=== PATIENT | female | born 1945 | race Caucasian/White ===

== ENCOUNTER 2016-08-18 06:47 | Inpatient (IN) | payer OTHER, MEDICARE ==
[2016-07-16 14:46] VITALS: BMI 32.0
--- NOTE | 2016-07-16 15:26 | PAT Medication Instructions ---
Service Date July 16, 2016. Current Home Medication List Aspirin (Aspirin Ec), 81 MG PO QAM Atorvastatin (Lipitor), 20 MG PO QPM Betamethasone Dipropionate Aug (Diprolene Af), 1 APPLN TOP BID PRN for RASH Cholecalciferol (Vitamin D), 1,000 INTER.UNIT PO QPM Gabapentin (Neurontin), 200 MG PO QAM/PM Gabapentin (Neurontin), 300 MG PO HS Hydrochlorothiazide (Hydrochlorothiazide), 1 TAB PO QAM Hydrocodone/Acetaminophen 5MG/325MG ([place] 5MG/325MG), 1 TABLET PO Q4 PRN for Pain Lisinopril (Prinivil), 20 MG PO QAM Misc Natural Products (Osteo Bi-Flex Joint Shiel), 1 TAB PO QPM Ropinirole (Requip), 0.5 MG PO HS Medication Instructions For Your Scheduled Surgery - Hold the following medications 7 days prior to surgery: Misc Natural Products (Osteo Bi-Flex Joint Shiel), 1 TAB PO QPM - Hold the following medications 24 hours prior to surgery: Betamethasone Dipropionate Aug (Diprolene Af), 1 APPLN TOP BID PRN for RASH - Hold the following medications evening prior to surgery: Ropinirole (Requip), 0.5 MG PO HS - Hold the following medications the morning of surgery: Lisinopril (Prinivil), 20 MG PO QAM Hydrochlorothiazide (Hydrochlorothiazide), 1 TAB PO QAM - Take the following medications the morning of surgery with a sip of water: Gabapentin (Neurontin), 200 MG PO (if needed) Hydrocodone/Acetaminophen 5MG/325MG ([place] 5MG/325MG), 1 TABLET PO Q4 PRN for Pain (can take up to four hours prior to surgery if needed) Aspirin (Aspirin Ec), 81 MG PO QAM - Take the following medications as scheduled the night before surgery: Gabapentin (Neurontin), 300 MG PO Hydrocodone/Acetaminophen 5MG/325MG ([place] 5MG/325MG), 1 TABLET PO Q4 PRN for Pain Cholecalciferol (Vitamin D), 1,000 INTER.UNIT PO QPM Atorvastatin (Lipitor), 20 MG PO QPM If you have any questions please call us at [phone] or [phone] ( [place]) or [phone]
[2016-07-16 16:01] LABS: URINE APPEARANCE CLEAR (CLEAR); URINE BILIRUBIN NEG (NEG); URINE COLOR YELLOW; URINE NITRITE NEG (NEG); URINE SPECIFIC GRAVITY 1.011 (1.000-1.030); UROBILINOGEN NEG (NEG); ZZUR CULT IF INDIC CLEAN CATCH NO
[2016-07-16 16:01] LABS: BASO % 0.3 %; BASO ABS # 0.02 K/uL (0-0.2); COMPLETE YES; EOS % 7.4 %; HEMATOCRIT 41.8 % (37-47); IG% 0.3 %; LYMPH % 27.2 %; LYMPH ABS # 2.13 K/uL (1.2-3.4); MEAN CELL VOLUME 91.5 fL (80-100); MEAN CORPUSCULAR HEMOGLOBIN 29.5 pg (25-34); MEAN CORPUSCULAR HGB CONC 32.3 g/dl (32-36); MEAN PLATELET VOLUME 10.8 fL (7.4-10.4); MONO % 5.8 %; PLATELET COUNT 228 K/uL (130-400); RED BLOOD COUNT 4.57 M/uL (4.2-5.4); WHITE BLOOD COUNT 7.82 K/uL (4.8-10.8)
[2016-07-16 16:14] LABS: MANUAL MICROSCOPIC REQUIRED? NO; REVIEW REQ? NO
[2016-07-16 16:26] LABS: PARTIAL THROMBOPLASTIN RATIO 1.2
--- NOTE | 2016-07-16 16:37 | DIAGNOSTIC IMAGING REPORT ---
CHEST 2 VIEWS ROUTINE CLINICAL HISTORY: Preoperative evaluation. COMPARISON STUDY: No previous studies for comparison. FINDINGS: Lung volumes are normal. There is no pneumothorax or pleural effusion. Bibasilar opacities favor atelectasis or scarring. There is no evidence of pulmonary edema. Cardiomediastinal silhouette is normal. IMPRESSION: No acute cardiopulmonary findings. Electronically signed by: Saul Omer M.D. 07/16/2016 4:36 PM Dictated Date/Time: 07/16/2016 4:36 PM
[2016-07-16 18:29] LABS: BUN/CREATININE RATIO 22.1 (10-20); CALCIUM 9.5 mg/dl (8.5-10.1); CREATININE 1.1 mg/dl (0.60-1.20); POTASSIUM 4.2 mmol/L (3.5-5.1)
[2016-07-17 07:32] LABS: ESTIMATED AVERAGE GLUCOSE 128 mg/dl; HA1C FLAG Normal (Normal)
--- NOTE | 2016-08-17 20:34 | HISTORY & PHYSICAL EXAMINATION ---
DATE OF ADMISSION: 08/18/2016 CHIEF COMPLAINT: Chronic right knee pain. HISTORY OF PRESENT ILLNESS: A 70-year-old female patient of Dr. Kong who is complaining of chronic right knee pain, longstanding, now progressively getting worse. The patient has been diagnosed with end-stage osteoarthritis per clinical and radiographic exams. She has failed conservative treatment including, acetaminophen, anti-inflammatories, intra-articular steroid injections and the use of cane and a wrap. She has increased pain with weightbearing activities and her pain does interfere with her activities of daily living. PAST MEDICAL HISTORY: Hypertension, hypercholesterolemia, carpal tunnel syndrome, osteoarthritis, spine problems, obesity, history of uterine cancer. SOCIAL HISTORY: Nonsmoker, nondrinker. FAMILY HISTORY: Noncontributory. REVIEW OF SYSTEMS: The patient complains of chronic right knee pain, otherwise denies any shortness of breath, chest pain, nausea, vomiting or any other joint complaints. PAST SURGICAL HISTORY: Tonsillectomy, , breast lumpectomy, hysterectomy, oophorectomy and knee arthroscopy. MEDICATIONS: Hydrocodone as needed, atorvastatin 20 mg daily, hydrochlorothiazide 12.5 mg daily, lisinopril 20 mg daily, betamethasone dipropionate 0.05% to affected area daily, aspirin 81 mg daily, vitamin D3 1000 unit daily, Neurontin 100 mg two tablets in the morning and three tablets in the evening, Osteo Bi-Flex daily, Requip 0.25 mg two tablets at bedtime. ALLERGIES: INCLUDE PENICILLIN. PHYSICAL EXAMINATION: GENERAL: Well-developed, well-nourished 70-year-old female in no acute distress. She is alert and oriented x3 and pleasant. HEENT: Normocephalic, atraumatic. Extraocular motions are intact. Pupils are equal and reactive to light. HEART: Regular rate and rhythm, and no murmurs appreciated. LUNGS: Clear. ABDOMEN: Soft, nontender, bowel sounds present. EXTREMITIES: Right knee reveals a valgus deformity with lateral joint line tenderness. She has a limited range of motion of 0-130 degrees. She has crepitation with passive range of motion with a mild effusion. She has 5/5 strength. NEUROLOGIC: Neurovascularly, she is intact in her right lower extremity. DIAGNOSES: Right knee end-stage osteoarthritis, hypertension, hypercholesterolemia, carpal tunnel syndrome, osteoarthritis, spine problems, obesity and history of uterine cancer. PLAN: The patient was advised of her diagnosis. Indications, risks, benefits, and postop course have all been reviewed. The patient wishes to proceed with a right total knee arthroplasty. Necessary consent forms, preoperative testing and clearances will be obtained.
[2016-08-18] VITALS (12 sets, daily range): BP systolic 138–188; BP diastolic 71–83; PULSE 55–81; TEMP 36.4–36.6; O2SAT 96–99; Ht 162.6 cm; Wt 85.0 kg
[~2016-08-18] VITALS: Ht 162.6 cm; Wt 85.0 kg
[2016-08-18] MEDS: TRANEXAMIC ACID INJ 1,000 MG in SODIUM CHLORIDE 0.9% 100ML 100 ML IV SCH ×2 (06:30→08:40)
[~2016-08-18 06:47] MED LIST: ACETAMINOPHEN 500 MG TAB PO SCH; ASPI81TA28 PO; ATOR-22 PO; AUG0.05C12 TOP; BUPIVACAINE 0.5 % 5 MG/1 ML PF 10ML VIAL ONE; CHOL100010 PO; CeleBREX 200 MG CAP PO SCH; DEXAMETHASONE 4 MG TAB PO SCH; FAMOTIDINE 20 MG TAB PO SCH; GABA-112 PO; GABA-113 PO; GABAPENTIN 300 MG CAP PO SCH; HYDR-5688 PO; HYDR12.55 PO; LACTATED RINGER'S 1000ML 1,000 ML IV SCH; LACTATED RINGER'S 1000ML IV SCH; LISI20TA3 PO; METOCLOPRAMIDE HCL 10 MG TAB PO SCH; MIDAZOLAM HCL 1 MG/ML 2ML VIAL ONE; MISCTAB30 PO; ROPI0.5T15 PO; ROPIVACAINE 0.5% 5 MG/ML 30 ML VIAL ONE; ROPIVACAINE 5MG/ML 30 ML 150 MG, BUPIVACAINE/EPINEPHR 0.5% MPF 30 ML, KETOROLAC TROMETH... INFIL SCH; VANCOMYCIN INJ 1,300 MG in SODIUM CHLORIDE 0.9% 250ML 250 ML IV SCH
[2016-08-18] MEDS ORDERED: ORTHO JOINT ANESTHETIC ONE (07:01)
[2016-08-18] MEDS ORDERED: POVIDONE-IODINE OP SOLN 30 ML BTL ONE (07:01)
[2016-08-18] MEDS ORDERED: BACITRACIN 50000 UNIT VIAL ONE (07:01)
--- NOTE | 2016-08-18 07:03 | History & Physical Bridge Note ---
H&P Re-Evaluation Bridge Note: I have examined the patient, reviewed the History & Physical and in the interval since the performance of the History & Physical I have noted the following changes of clinical significance: No changes noted
[2016-08-18] MEDS ORDERED: PROPOFOL IV EMULSION 10 MG/ML 20 ML VIAL IV ONE (09:59)
[2016-08-18] MEDS ORDERED: LIDOCAINE HCL 2% 2 ML VIAL (20MG/ML) ONE (09:59)
[2016-08-18] MEDS ORDERED: ONDANSETRON INJ 2 MG/ML 2 ML VIAL IV PRN ×2 (10:00→11:30)
[2016-08-18] MEDS ORDERED: PHENYLEPHRINE 100MCG/ML 5ML SYR IV PRN (10:00)
[2016-08-18] MEDS ORDERED: ATROPINE SULFATE 0.1 MG/ML 5ML SYR IV PRN (10:00)
[2016-08-18] MEDS ORDERED: EpHEDrine SULFATE INJ 50 MG/ML AMP IV PRN (10:00)
[2016-08-18] MEDS ORDERED: HYDROmorphone INJ 2 MG/ML SYR/VIAL IV PRN (10:00)
--- NOTE | 2016-08-18 11:03 | [facility] Operative Report ---
Operative Report Operative Date Aug 18, 2016. Pre-Operative Diagnosis Right Knee End-Stage Osteoarthritis,avn lateral femoral condyle failed arthroscopy and injection bone substitute for insufficiency fracture Post-Operative Diagnosis same Procedure(s) Performed right total knee replacement Surgeon Dr. Hawk Praj[address]ati [address] Sign Installer Surgeon(s) Marcelo Grijalva PA-c Estimated Blood Loss 5 ML Findings as above loose body fragment of lateral femoral condyle with defect in condyle Specimens Permanent Specimen A: Bone and Tissue Right knee Drains 2 hemovac Anesthesia spinal regional and orthomix Complication(s) None Disposition Recovery Room / PACU Indications grade 4 djd I attest to the content of the Intraoperative Record and any orders documented therein. Any exceptions are noted below.
[2016-08-18] MEDS ORDERED: BISACODYL 10 MG SUPP PR PRN (11:30)
[2016-08-18] MEDS ORDERED: MoRPHine SULFATE 2 MG/ML CARP IV PRN (11:30)
[2016-08-18] MEDS ORDERED: MoRPHine SULFATE 4 MG/ML 1 ML CARP\\VIAL IV PRN (11:30)
[2016-08-18] MEDS ORDERED: MAGNESIUM HYDROXIDE SUSP 30 ML UDC PO PRN (11:30)
[2016-08-18] MEDS ORDERED: ALUMINUM/MAGNESIUM/SIMETH (MAALOX MAX) 30 ML UDC PO PRN (11:30)
--- NOTE | 2016-08-18 12:02 | DIAGNOSTIC IMAGING REPORT ---
RIGHT KNEE 1 OR 2 VIEWS ROUTINE CLINICAL HISTORY: Postop study COMPARISON: 10/17/2015 DISCUSSION: There are postsurgical changes of a total right knee arthroplasty and patellar resurfacing. The femoral and tibial components appear well seated. There are overlying skin ivana and surgical drains. There is air in the soft tissues consistent with recent surgery. IMPRESSION: Postsurgical changes of a total right knee arthroplasty. Electronically signed by: Ben Bryant M.D. 08/18/2016 12:01 PM Dictated Date/Time: 08/18/2016 12:00 PM
--- NOTE | 2016-08-18 13:10 | Anesthesiology Progress Note ---
Anesthesia Post Op Note Date & Time Aug 18, 2016 at 13:09 Vital Signs Pain Intensity: 0 Vital Signs Past 12 Hours Date Time Temp Pulse Resp B/P (MAP) Pulse Ox O2 Delivery O2 Flow Rate FiO2 08/18/16 12:51 82 15 08/18/16 12:51 83 15 139/79 98 08/18/16 12:46 81 13 08/18/16 12:46 81 13 148/73 98 08/18/16 12:41 76 13 141/68 98 08/18/16 12:41 75 13 08/18/16 12:36 79 18 145/71 99 08/18/16 12:36 78 18 08/18/16 12:31 75 10 08/18/16 12:31 75 10 140/75 97 08/18/16 12:26 76 17 08/18/16 12:26 75 17 145/72 99 08/18/16 12:21 74 15 08/18/16 12:21 74 15 139/67 99 08/18/16 12:16 74 15 141/72 100 08/18/16 12:16 74 15 08/18/16 12:11 73 12 130/73 100 08/18/16 12:11 74 12 08/18/16 12:06 72 21 08/18/16 12:06 72 21 142/73 100 08/18/16 12:01 73 21 08/18/16 12:01 73 21 139/71 100 08/18/16 11:56 83 23 08/18/16 11:56 80 23 139/76 100 08/18/16 11:51 71 12 152/72 100 08/18/16 11:51 72 12 08/18/16 11:46 72 10 08/18/16 11:46 72 10 143/72 100 08/18/16 11:41 73 20 143/70 100 08/18/16 11:41 74 20 08/18/16 11:36 75 23 137/73 100 08/18/16 11:36 75 23 08/18/16 11:31 74 12 140/69 100 08/18/16 11:31 74 12 08/18/16 11:26 75 10 141/70 100 08/18/16 11:26 74 10 08/18/16 11:21 82 12 08/18/16 11:21 82 12 140/68 100 08/18/16 11:17 133/69 08/18/16 11:16 36.5 86 16 133/69 99 Nasal Cannula 2 08/18/16 08:37 69 18 169/77 (107) 96 Room Air 08/18/16 07:52 64 18 188/77 (114) 100 Room Air 08/18/16 07:22 99 Room Air 08/18/16 07:15 99 Room Air 08/18/16 07:14 36.4 68 18 188/83 Notes Mental Status: alert / awake / arousable, participated in evaluation Pt Amnestic to Procedure: Yes Nausea / Vomiting: adequately controlled Pain: adequately controlled Airway Patency, RR, SpO2: stable & adequate BP & HR: stable & adequate Hydration State: stable & adequate Anesthetic Complications: no major complications apparent
[2016-08-18] MEDS: D5W AND 1/2NSS + 20MEQ KCL 1,000 ML IV SCH (14:50)
--- NOTE | 2016-08-18 16:05 | Medical Consult ---
Consultation Date of Consultation: Aug 18, 2016. Attending Physician: Hawk Prajapati M.D. Reason for Consultation: postop medical management History of Present Illness Patient seen and examined after undergoing right total knee arthroplasty today by Dr. Prajapati. Patient denies any complaints currently. Pain is controlled. Leg numbness from sensory block is still resolving. She is eating lunch without issues. Denies dizziness, chest pain, SOB, N/V, change in bowel or bladder movements. Last BM was yesterday. No history of VTE. Past Medical/Surgical History Medical Problems: (1) CKD (chronic kidney disease), stage III Status: Chronic (2) Dyslipidemia Status: Chronic (3) Hx of cancer of endometrium Status: Chronic (4) Hypertension Status: Chronic (5) Neuropathy Status: Chronic (6) Osteoarthritis Status: Chronic Surgical Problems: (1) S/P right knee arthroscopy Status: Chronic (2) S/P ROSALBA-BSO Permanent Comment: cancer found incidentally Status: Chronic Family History Cardiac disorder FATHER MOTHER BROTHER Hypertension MOTHER Social History Smoking Status: Never Smoker Alcohol Use: none Marital Status: Housing Status: lives with significant other Allergies Coded Allergies: Penicillins (Verified Allergy, Unknown, RASH,hives, 08/18/16) Home Medications Active Reported Aspirin Ec (Aspirin) 81 Mg Tab 81 Mg PO QAM Requip (Ropinirole HCl) 0.5 Mg Tab 0.5 Mg PO HS Osteo Bi-Flex Joint Shiel (Misc Natural Products) 1 Tab Tab 1 Tab PO QPM Neurontin (Gabapentin) 300 Mg Cap 300 Mg PO HS Neurontin (Gabapentin) 100 Mg Cap 200 Mg PO QAM/PM Vitamin D (Cholecalciferol) 1,000 Inter.unit Tab 1,000 Inter.unit PO QPM Prinivil (Lisinopril) 20 Mg Tab 20 Mg PO QAM Diprolene Af (Betamethasone Dipropionate Aug) 0.05 % Cre 1 Appln TOP BID PRN Hydrochlorothiazide 12.5 Mg Tab 1 Tab PO QAM 90 Days Lipitor (Atorvastatin Calcium) 20 Mg Tab 20 Mg PO DAILY [place] 5MG/325MG (Acetaminophen/Hydrocodone Bitart) Tab 1 Tablet PO Q4 PRN PRN PAIN Current Inpatient Medications Current Inpatient Medications Medications (Trade) Dose Ordered Sig/Kalpana Route Start Time Stop Time Status Last Admin Dose Admin Acetaminophen (Tylenol Tab) 1,000 mg PREOP PO 08/18/16 06:00 08/18/16 18:00 08/18/16 07:44 1,000 MG Celecoxib (CeleBREX CAP) 200 mg PREOP PO 08/18/16 06:00 08/18/16 18:00 08/18/16 07:44 200 MG Dexamethasone (Decadron Tab) 8 mg PREOP PO 08/18/16 06:00 08/18/16 18:00 08/18/16 07:43 8 MG Famotidine (Pepcid Tab) 20 mg PREOP PO 08/18/16 06:00 08/18/16 18:00 08/18/16 07:44 20 MG Gabapentin (Neurontin Cap) 300 mg PREOP PO 08/18/16 06:00 08/18/16 18:00 Metoclopramide HCl (Reglan Tab) 10 mg PREOP PO 08/18/16 06:00 08/18/16 18:00 08/18/16 07:43 10 MG Tranexamic Acid 1000 mg/Sodium Chloride 110 ml @ 660 mls/hr TODAY@06,0630 IV 08/18/16 06:00 08/18/16 18:00 08/18/16 08:40 660 MLS/HR Atorvastatin Calcium (Lipitor Tab) 20 mg QPM PO 08/18/16 21:00 09/17/16 20:59 Cholecalciferol (Vitamin D Tab) 1,000 inter.unit QPM PO 08/18/16 21:00 09/17/16 20:59 Gabapentin (Neurontin Cap) 200 mg BID@0800,1200 PO 08/19/16 08:00 09/18/16 07:59 Gabapentin (Neurontin Cap) 300 mg HS PO 08/18/16 21:00 09/17/16 20:59 Lisinopril (Zestril Tab) 20 mg QAM PO 08/19/16 09:00 09/18/16 08:59 Ropinirole HCl (Requip Tab) 0.5 mg HS PO 08/18/16 21:00 09/17/16 20:59 Morphine Sulfate (MoRPHine SULFATE INJ) 4 mg Q4HWA PRN IV 08/18/16 11:30 09/01/16 11:29 Morphine Sulfate (MoRPHine SULFATE INJ) 2 mg Q4HWA PRN IV 08/18/16 11:30 09/01/16 11:29 Potassium Chloride/Dextrose/ Sod Cl 1,000 ml @ 100 mls/hr Q10H IV 08/18/16 14:45 08/19/16 11:17 08/18/16 14:50 100 MLS/HR Vancomycin HCl 1250 mg/Sodium Chloride 275 ml @ 125 mls/hr 1900 IV 08/18/16 19:00 08/18/16 21:11 Oxycodone HCl (Roxicodone Immediate Rel Tab) 1 TABLET FOR PAIN RATING... Q4H PRN PO 08/18/16 11:30 09/01/16 11:29 Oxycodone HCl (Oxycontin Tab) 10 mg Q12 PO 08/18/16 21:00 09/01/16 20:59 Acetaminophen (Tylenol Tab) 1,000 mg Q8 PO 08/18/16 22:00 09/17/16 11:29 Magnesium Hydroxide (Milk Of Magnesia Susp) 30 ml Q6H PRN PO 08/18/16 11:30 09/17/16 11:29 Bisacodyl (Dulcolax Supp) 10 mg DAILY PRN [place] 08/18/16 11:30 09/17/16 11:29 Senna (Senokot Tab) 17.2 mg HS PO 08/18/16 21:00 09/17/16 20:59 Docusate Sodium (coLACE CAP) 100 mg BID PO 08/18/16 21:00 09/17/16 20:59 Al Hydrox/Mg Hydrox/Simethicone (Maalox Max Susp) 15 ml Q4H PRN PO 08/18/16 11:30 09/17/16 11:29 Multivitamins (Multivitamin Tab) 1 tab QAM PO 08/19/16 09:00 09/18/16 08:59 Ondansetron HCl (Zofran Inj) 4 mg Q6H PRN IV 08/18/16 11:30 09/17/16 11:29 Ferrous Gluconate (Ferrous Gluconate Tab) 324 mg TIDM PO 08/18/16 17:45 09/17/16 11:59 Pantoprazole Sodium (Protonix Tab) 40 mg QAM PO 08/19/16 09:00 09/18/16 08:59 Aspirin (Ecotrin Tab) 81 mg BID PO 08/18/16 21:00 09/17/16 20:59 Review of Systems Ten systems reviewed and negative except as noted in HPI. Physical Exam Date Time Temp Pulse Resp B/P (MAP) Pulse Ox O2 Delivery O2 Flow Rate FiO2 08/18/16 15:20 Nasal Cannula 2.0 08/18/16 15:03 36.4 08/18/16 14:57 73 18 144/78 (100) 97 Nasal Cannula 2.0 08/18/16 14:30 70 18 149/76 (100) 96 Nasal Cannula 2.0 08/18/16 14:00 Nasal Cannula 2.0 08/18/16 14:00 36.6 81 18 160/78 (105) 98 Nasal Cannula 2.0 08/18/16 14:00 98 Nasal Cannula 2.0 08/18/16 13:31 153/80 08/18/16 13:27 86 18 97 08/18/16 13:27 86 18 08/18/16 13:26 148/76 08/18/16 13:22 82 14 97 08/18/16 13:22 82 14 08/18/16 13:21 149/80 08/18/16 13:17 87 12 08/18/16 13:17 87 12 98 08/18/16 13:16 156/79 08/18/16 13:12 88 17 97 08/18/16 13:12 88 17 08/18/16 13:11 150/77 08/18/16 13:07 90 14 97 08/18/16 13:07 90 14 08/18/16 13:06 162/83 08/18/16 13:02 87 13 97 08/18/16 13:02 85 13 08/18/16 13:01 143/65 08/18/16 12:57 88 13 98 08/18/16 12:57 88 13 08/18/16 12:56 148/76 08/18/16 12:52 83 16 08/18/16 12:52 83 16 98 08/18/16 12:51 82 15 08/18/16 12:51 83 15 139/79 98 08/18/16 12:46 81 13 08/18/16 12:46 81 13 148/73 98 08/18/16 12:41 76 13 141/68 98 08/18/16 12:41 75 13 08/18/16 12:36 79 18 145/71 99 17 12:36 78 18 08/18/16 12:31 75 10 17 12:31 75 10 140/75 97 17 12:26 76 17 08/18/16 12:26 75 17 145/72 99 1417 12:21 74 15 08/18/16 12:21 74 15 139/67 99 08/18/16 12:16 74 15 141/72 100 17 12:16 74 15 08/18/16 12:11 73 12 130/73 100 1417 12:11 74 12 08/18/16 12:06 72 21 08/18/16 12:06 72 21 142/73 100 08/18/16 12:01 73 21 08/18/16 12:01 73 21 139/71 100 08/18/16 11:56 83 23 08/18/16 11:56 80 23 139/76 100 08/18/16 11:51 71 12 152/72 100 08/18/16 11:51 72 12 08/18/16 11:46 72 10 08/18/16 11:46 72 10 143/72 100 08/18/16 11:41 73 20 143/70 100 08/18/16 11:41 74 20 08/18/16 11:36 75 23 137/73 100 17 11:36 75 23 08/18/16 11:31 74 12 140/69 100 08/18/16 11:31 74 12 08/18/16 11:26 75 10 141/70 100 08/18/16 11:26 74 10 08/18/16 11:21 82 12 08/18/16 11:21 82 12 140/68 100 17 11:17 133/69 08/18/16 11:16 36.5 86 16 133/69 99 Nasal Cannula 2 08/18/16 08:37 69 18 169/77 (107) 96 Room Air 08/18/16 07:52 64 18 188/77 (114) 100 Room Air 08/18/16 07:22 99 Room Air 08/18/16 07:15 99 Room Air 08/18/16 07:14 36.4 68 18 188/83 General Appearance: WD/WN, no apparent distress, + pertinent finding (pleasant alert 70 year old female sitting up in bed eating lunch, daughter at bedside) Head: normocephalic, atraumatic Eyes: normal inspection, PERRL, sclerae normal ENT: hearing grossly normal, pharynx normal Neck: supple, trachea midline Respiratory/Chest: lungs clear, normal breath sounds, no respiratory distress, no accessory muscle use Cardiovascular: regular rate, rhythm, no murmur Abdomen/GI: normal bowel sounds, non tender, soft Extremities/Musculoskelatal: no calf tenderness, no pedal edema, + pertinent finding (s/p right TKA, dressing in place, drain in place with sanguinous drainage. SCDs in place. ) Neurologic/Psych: alert, normal mood/affect, oriented x 3, + pertinent finding (grossly able to flex/ extend bilateral ankles) Skin: normal color, warm/dry Assessment & Plan S/P RIGHT TKA POD #[address] Prajapati Doing well postoperatively Pain control, wound care, activity per ortho Incentive spirometry Monitor daily H/H for sign of acute blood loss anemia HYPERTENSION BP significantly elevated on arrival preop- likely due to anxiety coming into surgery and not taking antihypertensives this morning BP has improved to 140s systolic Resume lisinopril and HCTZ in am Monitor BP CKD STAGE III Monitor renal function Avoid nephrotoxins DVT PROPHYLAXIS Per ortho DISPOSITION Per ortho Patient seen in collaboration with Dr. Wakefield. Please see his addendum. Agree with above note. 70F s/p right TKA. Tolerated procedure fine. Pain under control. No nausea. No chest pain or sob or cough. Afebrile. resting comfortably. p/e Ge not in distress Cvs s1 and s2 heard regular, no murmurs Rs cta b/l no added sounds Abd benign Group Home Counselor non focal Musculoskeletal s/p right TKA Ext no edema no erythema a/p s/p right TKA management as per ortho HTN home meds' will monitor
[2016-08-18] MEDS: FERROUS GLUCONATE 324 MG TAB PO SCH (17:38)
[2016-08-18] MEDS ORDERED: VANCOMYCIN INJ 1,250 MG in SODIUM CHLORIDE 0.9% 250ML 250 ML IV SCH (19:00)
--- NOTE | 2016-08-18 19:26 | OPERATIVE REPORT ---
DATE OF OPERATION: 08/18/2016 INDICATION FOR PROCEDURE: The patient is a 70-year-old female, who presents with progressive right greater than left knee pain. She had a history of bilateral lateral femoral condyle insufficiency fractures. The right knee was more painful, so we did go ahead with an arthroscopic debridement of the knee which demonstrated osteoarthritis and at that point intact articular surface of the femoral condyle and went ahead with an injectable bone substitute to treat the insufficiency fracture, but over the time, the area went on to AVN and some collapse and now she has grade 4, [id number] in the lateral compartment of her right knee. PREOPERATIVE DIAGNOSIS: Right knee end-stage osteoarthritis, status post insufficiency fracture lateral femoral condyle, status post arthroscopy of the right knee and injection of lateral femoral condyle area with injectable bone substitute to repair the insufficiency fracture. POSTOPERATIVE DIAGNOSIS: Same. PROCEDURE: Right total knee arthroplasty. SURGEON: Dr. Prajapati. RESOLUTION SPECIALIST: CORY Smith. ANESTHESIA: Spinal sedation, regional block Orthomix. OPERATIVE PROCEDURE: The patient was taken to the operating room and anesthetized under anesthesia as dictated. She was placed supine on the operating room table. Pneumatic tourniquet was placed on the right upper thigh. The right lower extremity was prepped and draped in sterile fashion. Exam demonstrated no particular instability. She had a valgus knee and some joint effusion, but she still had reasonably good range of motion. Right lower extremity was prepped and draped with ChloraPrep. The leg was elevated, exsanguinated with Esmarch bandage. Pneumatic tourniquet was raised to 300 mmHg. Anterior incision made across the right knee. Skin was incised longitudinally. The subcutaneous tissues were divided down to the fascia. Subcutaneous flaps were elevated. Incision was made through medial retinaculum and extended up to the mid-third of the quadriceps tendon and extended down to the medial tibial tubercle. Intraarticular findings demonstrate she had tricompartmental DJD, but majority of arthritis was lateral compartment where she had a [id number] in the lateral compartment and she has a large defect in her femoral condyle with some fibrocartilage within the defect and she did have a long oval loose body in the lateral gutter which likely was a AVN fragment that broke off from the femur. She had some patellofemoral arthritis as well. She had some chronic scarred synovial tissue. I used the [employer] Journey 2.0, total knee arthroplasty system, using [id number] promise of [place] MRI templating. Her knee was exposed by excising the patellar fat pad, doing symmetrical releases medially and laterally, which were minimal because of a well-balanced knee. We resected the lateral meniscus remnants of the medial menisci and the cruciate ligaments. Lateral synovial bands were released. The fat pad over the anterior femur for placement of the component in that area was resected. The cruciate ligaments were resected. With the femur exposed, the custom femoral cutting block was pinned in position and the distal femoral cut was made. The anterior, posterior and chamfer cuts were made with the 5 in 1 cutting block for the size 5 femur. The knee was extended and the patella everted, subperiosteal peel lateral release was performed around the patella. The patella width was measured and width was reproduced using a freehand cut technique and a 35 patella component. The drill holes for the patella were made. The excess lateral facet was beveled off to prevent any impingement. Then the tibia was subluxed and the custom tibial cutting block was pinned in position. The proximal tibial cut was made. Tibia was sized for a 4 implant. The trial implant was externally rotated in line with the tibial tubercle and pinned in position. A punch for the stem was used. A 15 trial insert gave balanced ligaments through full range of motion. Patella had a trace amount of liftoff and a lateral tilt, so I chose to go ahead and do a lateral release and a lateral release was performed of the upper to mid lateral retinaculum leaving the synovium intact and that totally centralize the patella through full range of motion. The trials were removed. The anesthetic cocktail was injected per protocol. The knee was copiously irrigated with pulsatile lavage antibiotic solution with bacitracin. The final components were cemented with Simplex G cement. The final components were the 5 Oxinium posterior stabilized [employer] Journey 2.0 femur, the 4 tibial baseplate, the 15 mm poly high flex posterior stabilized insert, and the 35 patella. All cement cured, the Betadine soap was used per protocol. The knee was copiously irrigated with antibiotic solution and bacitracin. The 2 Hemovac drains were placed and brought out laterally. The quadriceps tendon and medial retinaculum were closed with interrupted [id number] #1 Vicryl sutures. Subcutaneous tissue closed with interrupted 2-0 Vicryl, skin closed with ivana. Sterile dressings applied and the patient tolerated the procedure well. CORY Smith was my hospital administrative assistant. He functioned as my assistant toddler teacher in the entire procedure. He assisted in patient positioning, prepping, draping, assisted in leg positioning, soft tissue retraction, instrument management and performed the closure and will participate in the postoperative care of the patient. I attest to the content of the Intraoperative Record and any orders documented therein. Any exceptions are noted below. [facility]
[2016-08-18] MEDS: GABAPENTIN 300 MG CAP PO SCH (20:42)
[2016-08-18] MEDS: CHOLECALCIFEROL 1000 INTER.UNIT TAB PO SCH (20:42)
[2016-08-18] MEDS: ASPIRIN 81 MG ECTAB PO SCH (20:43)
[2016-08-18] MEDS: ROPINIROLE HCL 1 MG TAB PO SCH (20:43)
[2016-08-18] MEDS: OXYCODONE HCL 10 MG TABCR (OXYCONTIN) PO SCH (20:43)
[2016-08-18] MEDS: DOCUSATE SODIUM 100 MG CAP PO SCH (20:43)
[2016-08-18] MEDS: SENNA 8.6 MG TAB PO SCH (20:43)
[2016-08-18] MEDS ORDERED: ATORVASTATIN 20 MG TAB PO SCH (21:00)
[2016-08-18] MEDS ORDERED: NATURAL PRODUCTS PO SCH (21:00)
[2016-08-18] MEDS: ACETAMINOPHEN 500 MG TAB PO SCH (21:33)
[2016-08-18] MEDS: OXYCODONE HCL IR 5 MG TAB (IMMEDIATE RELEASE) PO PRN (23:47)
[2016-08-19] VITALS (7 sets, daily range): BP systolic 122–168; BP diastolic 70–86; PULSE 55–70; TEMP 36.4–37; O2SAT 97–100
[2016-08-19] MEDS: D5W AND 1/2NSS + 20MEQ KCL 1,000 ML IV SCH ×2 (01:13→10:45)
[2016-08-19] MEDS: ACETAMINOPHEN 500 MG TAB PO SCH ×3 (05:37→21:31)
[2016-08-19] MEDS: OXYCODONE HCL IR 5 MG TAB (IMMEDIATE RELEASE) PO PRN ×2 (05:37→12:57)
[2016-08-19 05:48] LABS: HEMATOCRIT 35.3 % (37-47); MEAN CELL VOLUME 90.3 fL (80-100); MEAN CORPUSCULAR HEMOGLOBIN 28.1 pg (25-34); MEAN CORPUSCULAR HGB CONC 31.2 g/dl (32-36); MEAN PLATELET VOLUME 10.6 fL (7.4-10.4); PLATELET COUNT 204 K/uL (130-400); RED BLOOD COUNT 3.91 M/uL (4.2-5.4)
[2016-08-19 06:23] LABS: BUN/CREATININE RATIO 26.2 (10-20); CALCIUM 8.2 mg/dl (8.5-10.1); CREATININE 0.89 mg/dl (0.60-1.20); POTASSIUM 3.9 mmol/L (3.5-5.1)
--- NOTE | 2016-08-19 07:39 | Anesthesiology Progress Note ---
Anesthesia Post Op Note Date & Time Aug 19, 2016 at 07:39 Vital Signs Pain Intensity: 3.0 Vital Signs Past 12 Hours Date Time Temp Pulse Resp B/P (MAP) Pulse Ox O2 Delivery O2 Flow Rate FiO2 08/19/16 04:15 36.4 59 16 139/70 (93) 97 Room Air 08/18/16 23:45 Room Air 08/18/16 23:10 36.6 55 16 145/71 (95) 96 Room Air 08/18/16 19:57 36.4 65 16 138/73 (94) 96 Room Air Notes Mental Status: alert / awake / arousable, participated in evaluation Pt Amnestic to Procedure: Yes Nausea / Vomiting: adequately controlled Pain: adequately controlled Airway Patency, RR, SpO2: stable & adequate BP & HR: stable & adequate Hydration State: stable & adequate Neuraxial Anesthesia: was administered, sensory block resolved Anesthetic Complications: no major complications apparent
[2016-08-19] MEDS: GABAPENTIN 100 MG CAP PO SCH ×2 (08:14→11:51)
[2016-08-19] MEDS: FERROUS GLUCONATE 324 MG TAB PO SCH ×3 (08:15→17:46)
[2016-08-19] MEDS: DOCUSATE SODIUM 100 MG CAP PO SCH ×2 (08:15→21:32)
[2016-08-19] MEDS: ASPIRIN 81 MG ECTAB PO SCH ×2 (08:16→21:31)
[2016-08-19] MEDS: HYDROCHLOROTHIAZIDE 25 MG TAB PO SCH (08:16)
[2016-08-19] MEDS: PANTOprazole SOD 40 MG TAB PO SCH (08:18)
[2016-08-19] MEDS: LISINOPRIL 20 MG TAB PO SCH (08:18)
[2016-08-19] MEDS: MULTIVITAMIN TAB PO SCH (08:18)
[2016-08-19] MEDS: ATORVASTATIN 20 MG TAB PO SCH (08:19)
--- NOTE | 2016-08-19 08:28 | Orthopedic Progress Note ---
Orthopedic Progress Note Date of Service Aug 19, 2016. Subjective Post OP Day: 1 Reports: feeling well, pain controlled w PO medications, Denies: complaints, chest pain, SOB, nausea / vomiting, light headedness, calf pain Objective calves soft nontender, N/V intact, capillary refill less than 2 sec., dressing C /D/I, A&O x3, toes mobile Date Time Temp Pulse Resp B/P (MAP) Pulse Ox O2 Delivery O2 Flow Rate FiO2 08/19/16 08:11 99 Room Air 08/19/16 07:55 36.4 55 16 122/80 (94) 99 Room Air 08/19/16 04:15 36.4 59 16 139/70 (93) 97 Room Air 08/18/16 23:45 Room Air 08/18/16 23:10 36.6 55 16 145/71 (95) 96 Room Air 08/18/16 19:57 36.4 65 16 138/73 (94) 96 Room Air 08/18/16 19:02 96 Room Air 08/18/16 16:56 36.4 71 16 160/80 (106) 98 Nasal Cannula 2.0 08/18/16 16:00 36.4 75 16 145/75 (98) 97 Nasal Cannula 2.0 08/18/16 15:20 Nasal Cannula 2.0 08/18/16 15:03 36.4 08/18/16 14:57 73 18 144/78 (100) 97 Nasal Cannula 2.0 08/18/16 14:30 70 18 149/76 (100) 96 Nasal Cannula 2.0 08/18/16 14:00 Nasal Cannula 2.0 08/18/16 14:00 36.6 81 18 160/78 (105) 98 Nasal Cannula 2.0 08/18/16 14:00 98 Nasal Cannula 2.0 08/18/16 13:31 153/80 08/18/16 13:27 86 18 97 08/18/16 13:27 86 18 08/18/16 13:26 148/76 08/18/16 13:22 82 14 97 08/18/16 13:22 82 14 08/18/16 13:21 149/80 08/18/16 13:17 87 12 08/18/16 13:17 87 12 98 08/18/16 13:16 156/79 6/14/17 13:12 88 17 97 /14/17 13:12 88 17 /14/17 13:11 150/77 6/14/17 13:07 90 14 97 /14/17 13:07 90 14 /14/17 13:06 162/83 614/17 13:02 87 13 97 /14/17 13:02 85 13 /14/17 13:01 143/65 14/17 12:57 88 13 98 14/17 12:57 88 13 14/17 12:56 148/76 14/17 12:52 83 16 /14/17 12:52 83 16 98 14/17 12:51 82 15 /14/17 12:51 83 15 139/79 98 14/17 12:46 81 13 14/17 12:46 81 13 148/73 98 14/17 12:41 76 13 141/68 98 14/17 12:41 75 13 14/17 12:36 79 18 145/71 99 14/17 12:36 78 18 /14/17 12:31 75 10 /14/17 12:31 75 10 140/75 97 14/17 12:26 76 17 /14/17 12:26 75 17 145/72 99 14/17 12:21 74 15 /14/17 12:21 74 15 139/67 99 14/17 12:16 74 15 141/72 100 /14/17 12:16 74 15 /14/17 12:11 73 12 130/73 100 14/17 12:11 74 12 /14/17 12:06 72 21 /14/17 12:06 72 21 142/73 100 /14/17 12:01 73 21 /14/17 12:01 73 21 139/71 100 /14/17 11:56 83 23 /14/17 11:56 80 23 139/76 100 /14/17 11:51 71 12 152/72 100 /14/17 11:51 72 12 6/14/17 11:46 72 10 /14/17 11:46 72 10 143/72 100 /14/17 11:41 73 20 143/70 100 6/14/17 11:41 74 20 08/18/16 11:36 75 23 137/73 100 08/18/16 11:36 75 23 08/18/16 11:31 74 12 140/69 100 08/18/16 11:31 74 12 08/18/16 11:26 75 10 141/70 100 08/18/16 11:26 74 10 08/18/16 11:21 82 12 08/18/16 11:21 82 12 140/68 100 08/18/16 11:17 133/69 08/18/16 11:16 36.5 86 16 133/69 99 Nasal Cannula 2 08/18/16 08:37 69 18 169/77 (107) 96 Room Air Laboratory Results 24 Hours: Test 08/19/16 05:04 Hematocrit 35.3 % Hemoglobin 11.0 g/dL Assessment & Plan Assessment: POD #1, Right TKA Plan: PT/ OT DVT proph- ASA D/C planning- Rehab, HS As per medicine. Inhouse Planning Pain Management: Oxycontin, Morphine, PO Tylenol, Oxy IR DVT Prophylaxis: TEDs, SCDs, ASA Discharge Planning Discharge Planning: rehab hospital Pain Management: Oxycontin, PO Tylenol, Oxy IR DVT Prophylaxis: TEDs, ASA Therapy: Physical Therapy, Occupational Therapy
[2016-08-19] MEDS: OXYCODONE HCL 10 MG TABCR (OXYCONTIN) PO SCH ×2 (09:14→21:30)
--- NOTE | 2016-08-19 20:33 | Progress Note ---
Medicine Progress Note Date & Time of Visit: Aug 19, 2016 at ~ 11:00 . Subjective Doing well postoperatively. No chest pain. No cough or dyspnea. No nausea or vomiting. No BM yet. Still has Gaviria cath. Postop pain well-controlled. . Objective Last 8 Hrs Date Time Temp Pulse Resp B/P (MAP) Pulse Ox O2 Delivery O2 Flow Rate FiO2 08/19/16 19:26 37.0 70 17 168/82 (110) 98 Room Air 08/19/16 15:15 Room Air 08/19/16 14:55 36.4 64 18 137/76 (96) 100 Room Air Physical Exam: General- no distress Lungs- clear Heart- RRR Abdomen- + BS, soft, nontender Extremities- RLE wrapped with elastic bandage; BETTIE stocking LLE; no calf tenderness Neuro- alert, oriented . Laboratory Results: Last 24 Hours Test 08/19/16 05:04 White Blood Count 10.30 K/uL Red Blood Count 3.91 M/uL Hemoglobin 11.0 g/dL Hematocrit 35.3 % Mean Corpuscular Volume 90.3 fL Mean Corpuscular Hemoglobin 28.1 pg Mean Corpuscular Hemoglobin Concent 31.2 g/dl RDW Standard Deviation 47.9 fL RDW Coefficient of Variation 14.6 % Platelet Count 204 K/uL Mean Platelet Volume 10.6 fL Sodium Level 142 mmol/L Potassium Level 3.9 mmol/L Chloride Level 107 mmol/L Carbon Dioxide Level 30 mmol/L Anion Gap 5.0 mmol/L Blood Urea Nitrogen 23 mg/dl Creatinine 0.89 mg/dl Est Creatinine Clear Calc Drug Dose 62.1 ml/min Estimated GFR () 76.1 Estimated GFR (Non- 65.7 BUN/Creatinine Ratio 26.2 Random Glucose 182 mg/dl Calcium Level 8.2 mg/dl Assessment & Plan S/P TKA Doing well postop. HYPERTENSION Blood pressure this morning 122/80. Continue hydrochlorothiazide and lisinopril. CKD III Serum creatinine stable at 0.89. VTE PROPHYLAXIS Per Ortho. Thank you for this consultation. We will follow the patient with you during their hospital stay. You can reach a member of the [facility] Hospitalist Team 27/09 via pager @ . You can reach me via cell @ [phone]. . Current Inpatient Medications: Current Inpatient Medications Medications (Trade) Dose Ordered Sig/Kalpana Route Start Time Stop Time Status Last Admin Dose Admin Cholecalciferol (Vitamin D Tab) 1,000 inter.unit QPM PO 08/18/16 21:00 09/17/16 20:59 08/18/16 20:42 1,000 INTER.UNIT Gabapentin (Neurontin Cap) 200 mg BID@0800,1200 PO 08/19/16 08:00 09/18/16 07:59 08/19/16 11:51 200 MG Gabapentin (Neurontin Cap) 300 mg HS PO 08/18/16 21:00 09/17/16 20:59 08/18/16 20:42 300 MG Lisinopril (Zestril Tab) 20 mg QAM PO 08/19/16 09:00 09/18/16 08:59 08/19/16 08:18 20 MG Ropinirole HCl (Requip Tab) 0.5 mg HS PO 08/18/16 21:00 09/17/16 20:59 08/18/16 20:43 0.5 MG Morphine Sulfate (MoRPHine SULFATE INJ) 4 mg Q4HWA PRN IV 08/18/16 11:30 09/01/16 11:29 Morphine Sulfate (MoRPHine SULFATE INJ) 2 mg Q4HWA PRN IV 08/18/16 11:30 09/01/16 11:29 Oxycodone HCl (Roxicodone Immediate Rel Tab) 1 TABLET FOR PAIN RATING... Q4H PRN PO 08/18/16 11:30 09/01/16 11:29 08/19/16 12:57 10 MG Oxycodone HCl (Oxycontin Tab) 10 mg Q12 PO 08/18/16 21:00 09/01/16 20:59 08/19/16 09:14 10 MG Acetaminophen (Tylenol Tab) 1,000 mg Q8 PO 08/18/16 22:00 09/17/16 11:29 08/19/16 14:09 1,000 MG Magnesium Hydroxide (Milk Of Magnesia Susp) 30 ml Q6H PRN PO 08/18/16 11:30 09/17/16 11:29 Bisacodyl (Dulcolax Supp) 10 mg DAILY PRN MT 08/18/16 11:30 09/17/16 11:29 Senna (Senokot Tab) 17.2 mg HS PO 08/18/16 21:00 09/17/16 20:59 08/18/16 20:43 17.2 MG Docusate Sodium (coLACE CAP) 100 mg BID PO 08/18/16 21:00 09/17/16 20:59 08/19/16 08:15 100 MG Al Hydrox/Mg Hydrox/Simethicone (Maalox Max Susp) 15 ml Q4H PRN PO 08/18/16 11:30 09/17/16 11:29 Multivitamins (Multivitamin Tab) 1 tab QAM PO 08/19/16 09:00 09/18/16 08:59 08/19/16 08:18 1 TAB Ondansetron HCl (Zofran Inj) 4 mg Q6H PRN IV 08/18/16 11:30 09/17/16 11:29 Ferrous Gluconate (Ferrous Gluconate Tab) 324 mg TIDM PO 08/18/16 17:45 09/17/16 11:59 08/19/16 17:46 324 MG Pantoprazole Sodium (Protonix Tab) 40 mg QAM PO 08/19/16 09:00 09/18/16 08:59 08/19/16 08:18 40 MG Aspirin (Ecotrin Tab) 81 mg BID PO 08/18/16 21:00 09/17/16 20:59 08/19/16 08:16 81 MG Atorvastatin Calcium (Lipitor Tab) 20 mg DAILY PO 08/19/16 09:00 09/17/16 20:59 08/19/16 08:19 20 MG Hydrochlorothiazide (Hydrochlorothiazide Tab) 12.5 mg QAM PO 08/19/16 09:00 09/18/16 08:59 08/19/16 08:16 12.5 MG
[2016-08-19] MEDS: CHOLECALCIFEROL 1000 INTER.UNIT TAB PO SCH (22:10)
[2016-08-19] MEDS: ROPINIROLE HCL 1 MG TAB PO SCH (22:10)
[2016-08-19] MEDS: GABAPENTIN 300 MG CAP PO SCH (22:10)
[2016-08-19] MEDS: SENNA 8.6 MG TAB PO SCH (22:10)
[2016-08-20] MEDS: OXYCODONE HCL IR 5 MG TAB (IMMEDIATE RELEASE) PO PRN ×2 (00:26→07:31)
[2016-08-20] MEDS: ACETAMINOPHEN 500 MG TAB PO SCH (05:54)
[2016-08-20 06:28] VITALS: BP 134/86; PULSE 65; TEMP 36.6; O2SAT 97
[2016-08-20] MEDS: DOCUSATE SODIUM 100 MG CAP PO SCH (07:30)
[2016-08-20] MEDS: MULTIVITAMIN TAB PO SCH (07:30)
[2016-08-20] MEDS: ATORVASTATIN 20 MG TAB PO SCH (07:30)
[2016-08-20] MEDS: FERROUS GLUCONATE 324 MG TAB PO SCH (07:30)
[2016-08-20] MEDS: GABAPENTIN 100 MG CAP PO SCH (07:30)
[2016-08-20] MEDS: PANTOprazole SOD 40 MG TAB PO SCH (07:30)
[2016-08-20] MEDS: LISINOPRIL 20 MG TAB PO SCH (07:31)
[2016-08-20] MEDS: HYDROCHLOROTHIAZIDE 25 MG TAB PO SCH (07:31)
[2016-08-20] MEDS: OXYCODONE HCL 10 MG TABCR (OXYCONTIN) PO SCH (07:31)
[2016-08-20] MEDS: ASPIRIN 81 MG ECTAB PO SCH (07:45)
--- NOTE | 2016-08-20 08:08 | Orthopedic Progress Note ---
Orthopedic Progress Note Date of Service Aug 20, 2016. Subjective Post OP Day: 2 Reports: feeling well, pain controlled w PO medications, Denies: complaints, chest pain, SOB, nausea / vomiting, light headedness, calf pain Objective calves soft nontender, N/V intact, capillary refill less than 2 sec., dressing C /D/I, A&O x3, toes mobile Silverlon in tact. Date Time Temp Pulse Resp B/P (MAP) Pulse Ox O2 Delivery O2 Flow Rate FiO2 08/20/16 07:49 Room Air 08/20/16 06:28 36.6 65 16 134/86 (102) 97 Room Air 08/20/16 00:20 Room Air 08/19/16 22:50 36.6 68 16 148/76 (100) 98 Room Air 08/19/16 19:26 37.0 70 17 168/82 (110) 98 Room Air 08/19/16 15:15 Room Air 08/19/16 14:55 36.4 64 18 137/76 (96) 100 Room Air 08/19/16 11:28 36.6 64 16 144/86 (105) 98 Room Air 08/19/16 08:11 99 Room Air Assessment & Plan Assessment: POD #2, Right TKA Plan: PT/ OT DVT proph- ASA D/C planning- Rehab, HS today As per medicine. Inhouse Planning Pain Management: Oxycontin, Morphine, PO Tylenol, Oxy IR DVT Prophylaxis: TEDs, SCDs, ASA Discharge Planning Discharge Planning: rehab hospital Pain Management: Oxycontin, PO Tylenol, Oxy IR DVT Prophylaxis: TEDs, ASA Therapy: Physical Therapy, Occupational Therapy
[2016-08-20] MEDS ORDERED: ATOR-22 PO (08:11)
[2016-08-20] MEDS ORDERED: HYDR12.55 PO (08:12)
[2016-08-20] MEDS ORDERED: OXYSR10 PO (08:12)
[2016-08-20] MEDS ORDERED: GABA-113 PO (08:12)
[2016-08-20] MEDS ORDERED: VTMD1000 PO (08:12)
[2016-08-20] MEDS ORDERED: FRRG PO (08:12)
[2016-08-20] MEDS ORDERED: RXC5 PO (08:12)
[2016-08-20] MEDS ORDERED: AUG0.05C12 TOP (08:12)
[2016-08-20] MEDS ORDERED: ASPEC81 PO (08:12)
[2016-08-20] MEDS ORDERED: ROPI0.5T15 PO (08:12)
[2016-08-20] MEDS ORDERED: GABA-112 PO (08:12)
[2016-08-20] MEDS ORDERED: LISI20TA3 PO (08:12)
[2016-08-20] MEDS ORDERED: CLC100 PO (08:12)
--- NOTE | 2016-08-20 08:14 | Discharge Instructions ---
Discharge Instructions Date of Service Aug 20, 2016. Admission Reason for Admission: Right Knee Degenerative Joint Disease Discharge Discharge Diagnosis / Problem: Right TKA Discharge Goals Goal(s): Improve function Activity Recommendations Activity Level: Assistance Required . Additional Information Patient informed of condition: Yes Advance Directives: Yes DNR: No Level of Care: Acute Rehab Communicable Disease: No Prognosis: Improving Gaviria Catheter: No Instructions / Follow-Up Instructions / Follow-Up ACTIVITY RECOMMENDATIONS: SELF CARE INSTRUCTIONS AFTER TOTAL KNEE REPLACEMENT A. You may need to continue a physical therapy program after discharge from the hospital. There are several options available to you. Your doctor will assist you in selecting the best one for you. 1. An out-patient facility 2 to 3 times a week for therapy or home therapy. 2. Continue working on all exercises taught to you in the hospital. Your goals should be to increase bending of your knee to 90 degrees and beyond and to fully straighten your knee. B. You may progress at your own pace from walking with a walker or crutches to a cane; then to no assistive devices. C. Make walking a part of your daily routine. Be up as much as comfortable with rest periods throughout the day. Rest with leg elevation is very important. Use the ice wrap frequently for the first 3-4 weeks. D. There are no restrictions on activities. You may ride in a car, shop, participate in nuisance wildlife trapper and all social activities. E. Wear the long elastic stockings (BETTIE hose) 20 hours a day for 2 weeks after surgery. They can be removed several times a day for laundering and for a bath. F. You may shower, no tub baths until cleared by your doctor. SPECIAL CARE INSTRUCTIONS: VERY IMPORTANT TO READ AND REVIEW A. There are a few signs you need to watch for after you are home. Call [facility] [place] if you notice any of the followin. Increased severe knee pain. Some pain is expected especially when you exercise. 2. Increased swelling in your leg or knee; pain or swelling of the calf muscle in either lower leg. 3. Any fluid drainage from the incision. 4. Shortness of breath or chest pain. B. Please call [facility] [place] [place] at if you have any concerns or questions about your operation or recovery. The doctor or his nurse will return your call promptly. C. You must take antibiotics before dental work, bladder, bowel or other surgery. Your doctor will provide you with a permanent care to carry describing this precaution. IMPORTANT: * REMEMBER TO TAKE ASPIRIN, 81 MG, TWICE DAILY FOR 4 WEEKS UNLESS OTHERWISE DIRECTED. THIS IS YOUR BLOOD THINNER. * HIGH RISK PATIENTS MAY BE PRESCRIBED A STRONGER BLOOD THINNER. THIS WILL BE PROVIDED AT DISCHARGE. * CALL IF INCREASED PAIN, REDNESS, DRAINAGE OR FEVER GREATER THAT 101. * WEAR BETTIE HOSE 20 HOURS PER DAY FOR 2 WEEKS. * YOU MAY HAVE A LARGE BAND-AID LIKE DRESSING (SILVERON). THIS WILL REMAIN ON YOUR INCISION FOR 7 DAYS, THEN CAN BE REMOVED. IF INCISION IS LEAKING THROUGH DRESSING, CALL THE OFFICE . FOLLOW UP VISIT: If appointment is not already scheduled: Please call [facility] [place] to make a follow-up appointment for 2 weeks after your surgery at . Current Hospital Diet Patient's current hospital diet: Regular Diet Discharge Diet Recommended Diet: Regular Diet Procedures Procedures Performed: Right Total Knee Arthroplasty Pending Studies Studies pending at discharge: no Laboratory Results Hemoglobin A1c Test 07/16/16 15:35 Range/Units Estimated Average Glucose 128 mg/dl Hemoglobin A1c 6.1 H 4.5-5.6 % Medical Emergencies . Who to Call and When: Medical Emergencies: If at any time you feel your situation is an emergency, please call 911 immediately. . Non-Emergent Contact Non-Emergency issues call your: Primary Care Provider . . "Provider Documentation" section prepared by Remy Mejia. . Core Measure Problem Core Measures: None [place] Drug Monitoring Program Search Results: patient reviewed within database, no issues identified
[2016-08-20 08:39] VITALS: BP 134/86; PULSE 65; TEMP 36.6; O2SAT 97
[2016-08-20 09:23] VITALS: BP 153/79; PULSE 73; O2SAT 90
--- NOTE | 2016-08-23 23:06 | DISCHARGE SUMMARY ---
DISCHARGE DIAGNOSIS: Degenerative joint disease, right knee. SECONDARY DIAGNOSES: Hypertension, hypercholesterolemia, carpal tunnel syndrome, history of osteoarthritis, obesity, uterine carcinoma. CONSULTS: Alicia Stafford PA-C/Dr. Twyla MD. COMPLICATIONS: None. PROCEDURES: Right total knee arthroplasty performed by Dr. Prajapati on 08/18/2016. BRIEF HISTORY: As dictated in history and physical. HOSPITAL SUMMARY: The patient was admitted on the above-noted date and had the above-noted surgery performed, which she tolerated well. On the first postoperative day, she is feeling well and pain was controlled. Calves were soft, nontender, neurovascularly intact. Dressings clean, dry and intact. Toes are mobile. Vital signs are stable. She is afebrile and hemoglobin was 11.0. She was started on physical therapy protocol and continued on DVT prophylaxis and pain management. By her second postoperative day, she was feeling well and pain was controlled and she had no complaints. Calves were soft, nontender, neurovascularly intact. Dressings clean, dry and intact. Toes were mobile and a Silverlon dressing was intact. Vital signs were stable. She was afebrile. Systolic blood pressures were fluctuating, highest being 168 during the evening of 08/19/2016. She was continued on her PT protocol and pain management. Medicine service continued to manage her blood pressures. She was, otherwise, remaining stable and it was felt that [facility] and care, on 08/20/2016. For further review, please see chart. LAB AND X-RAY DATA: As per chart. DISCHARGE INSTRUCTIONS: The patient was discharged to [facility] on 08/20/2016. DIET: Regular. ACTIVITY: The patient to have assistance required. Follow TK instruction sheets and special care instructions. The patient to have PT and OT protocols and follow up with Dr. Prajapati in 2 weeks. The patient to call for appointment, if one has not been made for you. DISCHARGE MEDICATIONS: Aspirin 81 mg p.o. b.i.d. for 30 days; after 30 days, resume once daily dosing, vitamin D3 1000 international units p.o. q.p.m., Colace 100 mg p.o. b.i.d. for 10 days, ferrous gluconate 324 mg p.o. t.i.d. for 10 days, OxyContin 10 mg p.o. q. 12 hours, oxycodone 5-10 mg p.o. q. 4 hours p.r.n., resume atorvastatin 20 mg p.o. daily, Diprolene AF 0.5% cream 1 application topically b.i.d. p.r.n., gabapentin 200 mg p.o. q.a.m. and p.m., gabapentin 300 mg at bedtime, hydrochlorothiazide 25 mg p.o. q.a.m., lisinopril 20 mg p.o. q.a.m., Requip 0.5 mg p.o. at bedtime. Stop taking Osteo Bi-Flex and Bitely.
== END 2016-08-20 11:00 | DRG 470 ==
LOC: C.ACU 06:47 → C.3E 07:38 → ENRESERV 12:21
PROVIDERS: ADMIT Orthopaedic Surgery Sports Medicine; ATTEND Orthopaedic Surgery Sports Medicine
PROC: 0SRC0J9 Replacement of Right Knee Joint with Synthetic Substitute, Cemented, Open Approach (ICD-10-PCS; principal; 2016-08-18 09:15)
DX: M17.11 Unilateral primary osteoarthritis, right knee (principal); M87.851 Other osteonecrosis, right femur; I12.9 Hypertensive chronic kidney disease with stage 1 through stage 4 chronic kidney disease, or unspecified chronic kidney disease; N18.3 Chronic kidney disease, stage 3 (moderate); E78.00 Pure hypercholesterolemia, unspecified; E78.5 Hyperlipidemia, unspecified; M19.90 Unspecified osteoarthritis, unspecified site; G62.9 Polyneuropathy, unspecified; G56.00 Carpal tunnel syndrome, unspecified upper limb; E66.9 Obesity, unspecified; Z68.32 Body mass index [BMI] 32.0-32.9, adult; Z85.42 Personal history of malignant neoplasm of other parts of uterus; Z79.82 Long term (current) use of aspirin; Z79.899 Other long term (current) drug therapy; Z88.0 Allergy status to penicillin; Z90.710 Acquired absence of both cervix and uterus; Z90.722 Acquired absence of ovaries, bilateral; Z90.79 Acquired absence of other genital organ(s)